=== PATIENT | male | born 1965 | race Caucasian/White ===

== ENCOUNTER 2016-08-08 22:41 | Emergency (ER) | payer SELFPAY ==
[~2016-08-08] VITALS: Ht 188 cm; Wt 77.1 kg
[2016-08-08 23:20] LABS: Basophils # (auto) 0.1 uL; Basophils % (auto) 0.6 % (0.0-2.0); Eosinophils # (auto) 0.2 uL; Eosinophils % (auto) 1.6 % (0.0-7.0); Hematocrit 46.4 % (41.0-53.0); Hemoglobin 15.9 g/dL (13.5-17.5); Lymphocytes # (auto) 4.3 uL; Lymphocytes % (auto) 38.1 % (10.0-50.0); Mean Corpuscular Hemoglobin 31.3 pg (28.0-32.0); Mean Corpuscular Hgb Conc. 34.2 g/dL (32.0-36.0); Mean Corpuscular Volume 91.4 fL (80.0-100.0); Mean Platelet Volume 7.9 fL (7.4-10.4); Neutrophils # (auto) 5.8 uL; Neutrophils % (auto) 50.7 % (37.0-80.0); Platelet Count (auto) 351 10^3/uL (140-450); Red Cell Distribution Width 13.6 % (11.6-16.0); White Blood Cell 11.4 10^3/uL (4.4-10.8)
[2016-08-09 00:15] LABS: Albumin 4.4 g/dL (3.4-5.0); BUN/Creatinine Ratio 9.7; Calcium 8.9 mg/dL (8.5-10.1)
[2016-08-09 00:17] LABS: Bilirubin, Total 0.4 mg/dL (0.2-1.0)
[2016-08-09 03:43] VITALS: BP 120/72
== END 2016-08-09 03:44 | disposition home or self-care (01) ==
LOC: ER 22:41
DX: G47.00 Insomnia, unspecified (principal); F43.20 Adjustment disorder, unspecified; F41.9 Anxiety disorder, unspecified; J44.9 Chronic obstructive pulmonary disease, unspecified; E11.9 Type 2 diabetes mellitus without complications; F17.210 Nicotine dependence, cigarettes, uncomplicated; Z98.890 Other specified postprocedural states
CPT/HCPCS: 36415; 70450; 80053; 82962; 85025; 93005